=== PATIENT | male | born 2000 | race Caucasian/White ===

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

== ENCOUNTER 2020-07-22 01:50 | Emergency (ER) | payer SELFPAY ==
[~2020-07-22] VITALS: Ht 170.2 cm; Wt 72.6 kg
[~2020-07-22 01:50] MED LIST changes: +MIRT-92 PO; -MIRT30TA PO
[2020-07-22 01:55] VITALS: BP 134/78
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
--- NOTE | 2020-07-22 02:15 | NUR ---
Patient discharged with v/s stable. Written and verbal after care instructions given and explained. Patient verbalized understanding. Ambulatory with steady gait. All questions addressed prior to discharge. Advised to follow up with PMD.
[2020-07-22 02:49] VITALS: BP 134/78
== END 2020-07-22 02:14 ==
LOC: MED 01:50
DX: F10.129 Alcohol abuse with intoxication, unspecified (principal); Z02.89 Encounter for other administrative examinations; V49.9XXA Car occupant (driver) (passenger) injured in unspecified traffic accident, initial encounter; Y93.89 Activity, other specified; Y92.89 Other specified places as the place of occurrence of the external cause; Y99.8 Other external cause status; Y90.9 Presence of alcohol in blood, level not specified
CPT/HCPCS: 99283